=== PATIENT | female | born 1985 | race Caucasian/White ===

== ENCOUNTER 2021-11-06 10:58 | Outpatient (CLI) | payer SELFPAY ==
[2021-11-06 11:07] VITALS: BP 103/65; PULSE 93; O2SAT 96
[2021-11-06 11:13] VITALS: TEMP 36.5
[2021-11-06 11:16] VITALS: BMI 29.9
[2021-11-06] MEDS: Lactated Ringers 1,000 ML 125 ML IV (11:41)
[2021-11-06 12:48] VITALS: BP 122/74; PULSE 77; O2SAT 98
--- NOTE | 2021-11-06 12:49 | PCM.HP.OB ---
HPI - General General Date of Service: 11/06/21 Chief Complaint: breech presentation HPI Narrative MICAELA KELLY, is a 36 F who presents for scheduled external cephalic version. She has a history of 3 prior vaginal deliveries. She had a formal ultrasound showing breech presentation, a fundal posterior placenta, and an SHYANN of about 16 cm. uncomplicated other than advanced maternal age. See [facility] records. PFSH PFSH Home Medications vits,calcium no.78-iron fumarate-folic acid 29 mg-1 mg tablet (Prenatabs FA) 1 tab PO DAILY 07/23/14 [History Last Taken 11/06/21 09:30 1 tab] Allergy/AdvReac Type Severity Reaction Status Date / Time No Known Allergies Allergy Verified 11/06/21 11:17 Social History Smoking Status: Never smoker History Elective abortions Hx Para 2 Spontaneous abortions Hx # Term Pregnancies Ectopic pregnancies Hx # Pregnancies Multiple births # of living children NST FHR Rate Baby A Baseline: 140 Variability:: Moderate Accelerations:: 15 x 15 Decelerations:: None Vital Signs Vital Signs Vital Signs: 11/06/21 11:07 11/06/21 11:07 11/06/21 11:07 Temperature Temperature Source Pulse Rate 93 Blood Pressure 103/65 BP Systolic 103 BP Diastolic 65 Pulse Ox 96 11/06/21 11:13 11/06/21 11:13 Temperature 97.7 F L Temperature Source Temporal Pulse Rate Blood Pressure BP Systolic BP Diastolic Pulse Ox Weight Weight: 185 lb 13.595 oz Body Mass Index (BMI) 29.9 Physical Exam Const alert and no apparent distress HEENT normocephalic Resp normal respiratory effort GI soft to palpation, non-tender and non-distended GI Narrative: Gravid Labs Labs Labs: Blood Type A POSITIVE Antibody Screen NEGATIVE Hct 31.1 % (37-47) L Hgb 10.6 g/dl (12.0-15.0) L Rhogam given: No Assessment & Plan (1) Breech presentation: (2) 37 weeks gestation of : PLAN: Plan Patient presents for a scheduled 37-week external cephalic version. Bedside ultrasound performed and viable female infant in jermaine breech presentation, posterior placenta, subjectively normal fluid. Discussed risk, benefits, alternatives to an external cephalic version and patient desires to proceed after informed consent. See procedure note for details. Rh+. NST reactive prior to procedure.
--- NOTE | 2021-11-06 12:52 | PCM.OPRPT ---
Problems Associated Problem List Diagnoses (1) 37 weeks gestation of : (2) Breech presentation: Report of Operation Date of Procedure: 11/06/21 Pre-Operative Diagnosis: 37 week gestation, breech presentation Post-Operative Diagnosis: As above Surgery/Procedure Performed:: External cephalic version Description of Surgical Findings:: Bedside ultrasound performed noting fetus in jermaine breech presentation, posterior placenta, subjectively normal fluid. Surgeon: Laya Barrera english as a second language instructor: Nahomi Salguero Type of Anesthesia: None Special Medications: None Specimen's removed: None Drains: None Estimated Blood Loss (mL): n/a Fluids Replaced: n/a Description of Procedure: Pt is a 36-year-old who presented to labor and delivery at 37 weeks gestation for a scheduled external cephalic version. Advanced maternal age in the . History of 3 prior vaginal deliveries. has been uncomplicated, however at her visit in the office it was found that her current gestation is in breech presentation. A reactive heart tracing was obtained prior to the procedure. Discussed risks of an external cephalic version including but not limited to changes in heart rate, rupture of membranes, cord prolapse, placental abruption, vaginal bleeding, possible emergency section, compromise. Patient desires to proceed after discussion of risk, benefits, alternatives to external cephalic version. A bedside ultrasound was performed which confirmed a single intrauterine and jermaine breech presentation. The pelvis was in the maternal pelvis with the spine along the maternal right side, and the head in the maternal left upper quadrant. Using manual pressure the fetus was manipulated with gentle pressure from the palms against the buttocks and posterior occiput to stimulate a forward roll. In total 4 attempts were made. heart rate was obtained between each attempt and was reassuring. The fetus remained in jermaine breech presentation after 4 attempts. The patient tolerated the procedure. She was placed back on the heart rate monitoring for a total of 1 hour of monitoring post procedure. Discussed reasons to call or come back in for further evaluation. Discussed a 39-week section. She has a visit in 2 days in the office. Grafts/Implants Used: None Complications None Admit VTE Documentation VTE Present on Admission: No
[2021-11-06 13:59] VITALS: BP 110/67; PULSE 68; TEMP 36.5
== END 2021-11-06 14:10 | disposition home or self-care (01) ==
LOC: WPOUT 10:59 → WP 10:59
PROVIDERS: Visit Provider Obstetrics & Gynecology
DX: O32.1XX0 Maternal care for breech presentation, not applicable or unspecified (principal); O09.523 Supervision of elderly multigravida, third trimester; O43.193 Other malformation of placenta, third trimester; Z3A.37 37 weeks gestation of pregnancy
CPT/HCPCS: 96360; 96361; 59025; 59050; 59412; 76815; 99218; J7120; G0378

== ENCOUNTER 2021-11-19 09:45 | Inpatient (IN) | payer SELFPAY ==
[2021-11-19] VITALS (17 sets, daily range): BP systolic 90–112; BP diastolic 45–69; PULSE 60–88; RESP 12–18; TEMP 36.1–36.6; O2SAT 94–98; BMI 29.9
[2021-11-19] MEDS: Lactated Ringers 1,000 ML 999 ML IV (10:15)
[2021-11-19] MEDS: Acetaminophen 500 MG Tablet 1000 MG PO ×3 (10:37→23:40)
[2021-11-19 10:40] LABS: Absolute Lymphocyte Count 1.94 X10^3/uL (0.83-4.51); Absolute Neutrophil Count 5.8 X10^3/uL (2.0-7.7); Basophil# 0.03 X10^3/uL; Basophil% 0.4 % (0-1); Eosinophil# 0.08 X10^3/uL; Eosinophils% 0.9 % (0-5); Hematocrit 33.9 % (37-47); Hemoglobin 11.7 g/dL (12.0-15.0); Lymphocyte # 1.94 X10^3/ul (0.83-4.51); Lymphocyte % 22.7 % (19-41); Mean Corp Hgb Conc 34.5 g/dL (32-36); Mean Corpuscular Hgb 32.6 pg (27.0-32.0); Mean Corpuscular Volume 94.4 fL (81-99); Mean Platelet Vol. 11.5 fl (6.2-12.0); Monocyte# 0.64 X10^3/uL; Monocyte% 7.5 % (0-10); NRBC Flagged by Analyzer 0 % (0-5); Neutrophil # 5.79 X10^3/uL (2.7-7.7); Neutrophil % 67.7 % (47-70); Platelet Count 148 K/mm3 (150-450); RBC Distribution Width CV 12.8 % (11.6-14.6); RBC Distribution Width SD 43.9 fl (35.1-43.9); Red Blood Count 3.59 M/mm3 (4.2-5.4); White Blood Count 8.6 K/mm3 (4.4-11.0)
[2021-11-19] MEDS: Lactated Ringers 1,000 ML 150 ML IV (11:26)
--- NOTE | 2021-11-19 11:37 | PCM.PN.BLA ---
Progress Note I have re-examined the patient. There are no clinical changes since date of exam.
[2021-11-19] MEDS: Sodium Citrate/Citric Acid 30 ML UDC PO (11:41)
[2021-11-19] MEDS: Cefazolin 2 GM in 0.9% Normal Saline 100 ML IV (12:00)
--- NOTE | 2021-11-19 12:34 | EX.PCM.OBRPT ---
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 She was then placed in the supine position. She was prepped and draped in the normal sterile fashion. Anesthesia was found to be adequate. At this time a Pfannenstiel skin incision was made with a knife was carried down to the underlying layer of the fascia. The fascial incision was then extended laterally using curved Desouza scissor. attention was then turned to the superior aspect of the fascial edge was grasped with 2 straight [place] clamps tented up and the rectus muscle dissected off sharply using curved Desouza scissor. Attention was then turned to the inferior aspect where again [place] clamps were placed in the rectus muscles were tented up and the fascia was dissected off sharply using the curved Desouza scissor. Rectus muscles were then in the midline bluntly and peritoneum was entered bluntly. Gentle opposing traction was placed. At this time the vesicouterine peritoneum was identified. Scalpel was used to make a uterine incision in a low transverse fashion. The uterus was then entered bluntly gentle opposing traction was placed to extend this incision. Membranes were ruptured clear. Infant's buttocks was brought to the uterine incision was delivered atraumatically followed by the arms and head. loose nuchal x 1- delivered through then reduced. Delayed cord clamping. mouth and nose suctioned. Cord was clamped and cut was handed to the waiting nursery team. The Placenta was removed from the uterus. The uterus was then removed from the abdominal cavity. The uterus was cleared of all clots and debris using a lap. At this time the uterine incision was reapproximated using #1 Vicryl in a running locked fashion. Hemostasis was appreciated. Posterior cul-de-sac was then cleared of all clots and debris. Uterus was placed back in the abdominal cavity. Gutters were cleared of all clots and debris. Uterine incision was reevaluated and noted to be of excellent hemostasis. nuno placed. At this time the peritoneum and muscle were grasped with Kellys reapproximated using #2 Vicryl suture in a running fashion. Fascia was then reapproximated using #1 Vicryl in a running fashion. Subcu layer was reapproximated with #2 0 plain gut suture in an interrupted fashion. Subcu layer was closed using 4-0 Monocryl in a subcu fashion. Dry sterile dressing was applied. Instrument lap needle count correct ?2. Anticipated normal postoperative course. Presentation: Positive for Colin Breech Amniotic Membrane Rupture Type: Artificial Amniotic Fluid Description: Clear Placental Delivery Description: Expressed Placenta Disposition: [facility] Cord Vessel Description: 3 Vessels Cord Entanglement: Around neck x 1, loose Nuchal Cord Compression: Without compression A Gender: Female (1 minute): 9 (5 minute): 9 Delayed Cord Clamping: Yes Complications Risks of Surgery Discussed w/Patient: Bleeding, Anesthesia Risks, Infection and Injury to surrounding structure(s) including bowel and bladder Complications: none
[2021-11-19] MEDS: Oxytocin 30 units/NS 500 ml 30 UNITS/500 ML IV.SOLN 167 UNITS IV (12:50)
[2021-11-19] MEDS: Ketorolac 30 MG/ML Syringe IV ×2 (13:32→19:57)
[2021-11-19] MEDS: Lactated Ringers 1,000 ML 100 ML IV (15:38)
[2021-11-20 00:24] VITALS: BP 91/53; PULSE 69; RESP 16; TEMP 36.6; O2SAT 100
[2021-11-20] MEDS: Ketorolac 30 MG/ML Syringe IV ×2 (02:14→08:27)
[2021-11-20] MEDS: 0.9% Saline Lock 10 ML Syringe IV (02:14)
[2021-11-20 04:02] VITALS: BP 101/56; PULSE 70; RESP 16; TEMP 36.2; O2SAT 97
[2021-11-20] MEDS: Acetaminophen 500 MG Tablet 1000 MG PO ×2 (05:40→11:50)
[2021-11-20 06:02] LABS: Hematocrit 29.4 % (37-47); Hemoglobin 9.9 g/dL (12.0-15.0); Mean Corp Hgb Conc 33.7 g/dL (32-36); Mean Corpuscular Hgb 32.6 pg (27.0-32.0); Mean Corpuscular Volume 96.7 fL (81-99); Mean Platelet Vol. 11.7 fl (6.2-12.0); Platelet Count 108 K/mm3 (150-450); RBC Distribution Width CV 12.9 % (11.6-14.6); RBC Distribution Width SD 45.5 fl (35.1-43.9); Red Blood Count 3.04 M/mm3 (4.2-5.4)
[2021-11-20 08:22] VITALS: BP 89/44; PULSE 75; RESP 16; TEMP 36.1; O2SAT 96
--- NOTE | 2021-11-20 09:09 | PCM.PN.OB ---
Subjective Subjective Pain well controlled, average lochia. No N/V. Liu. regular diet Objective Data Objective Data Vital Signs: Vital Signs Temp Pulse Resp BP Pulse Ox O2 Del Method 97.0 F L 75 16 89/44 L 96 Room Air 11/20/21 08:22 11/20/21 08:22 11/20/21 08:22 11/20/21 08:22 11/20/21 08:22 11/20/21 08:22 Oxygen Delivery Method Room Air Weight: 84 kg Body Mass Index (BMI) 29.9 Intake & Output: Intake and Output for Last 24 Hours 11/18/21 11/19/21 11/20/21 23:59 23:59 23:59 Intake Total 2536.67 / 2536.67 Output Total 800 / 800 300 / 300 Balance 1736.67 / 1736.67 -300 / -300 Lab / Micro Data Result Diagrams: 11/20/21 05:40 Labs: Laboratory Results - last 24 hr 11/19/21 10:15: WBC 8.6, RBC 3.59 L, Hgb 11.7 L, Hct 33.9 L, MCV 94.4, MCH 32.6 H, MCHC 34.5, RDW Std Deviation 43.9, RDW Coeff of Selene 12.8, Plt Count 148 L, MPV 11.5, Immature Gran % (Auto) 0.800, Neut % (Auto) 67.7, Lymph % (Auto) 22.7, [place]y % (Auto) 7.5, Eos % (Auto) 0.9, Baso % (Auto) 0.4, Absolute Neuts (auto) 5.8, Absolute Lymphs (auto) 1.94, Nucleated RBC % 0 11/19/21 10:15: Blood Type A POSITIVE, Antibody Screen NEGATIVE 11/20/21 05:40: WBC 10.0, RBC 3.04 L, Hgb 9.9 L, Hct 29.4 L, MCV 96.7, MCH 32.6 H, MCHC 33.7, RDW Std Deviation 45.5 H, RDW Coeff of Selene 12.9, Plt Count 108 L, MPV 11.7 Micro: Microbiology 11/19/21 10:20 Nasal Secretion SARS-CoV-2 Antigen (Rapid) - Final Physical Exam Const alert General Appearance: cooperative GI GI Narrative: soft, moderate distention, fundus firm, appropriately tender. Abdominal bandage clean dry and intact Assessment & Plan (1) Delivery by section: PLAN: Plan Operative day 1. Patient is doing well. Status post primary . is breast-feeding and doing well. Desires discharge home today.
--- NOTE | 2021-11-20 09:12 | PCM.DC.SUM ---
Providers Date of Admission: 11/19/21 Reason For Visit: PRIMARY C SECTION Diagnosis Discharge Diagnosis (1) Delivery by section: Status: Acute Plan Operative day 1. Patient is doing well. Status post primary . is breast-feeding and doing well. Desires discharge home today. Medications at Discharge Home Medications vits,calcium no.78-iron fumarate-folic acid 29 mg-1 mg tablet (Prenatabs FA) 1 tab PO DAILY 07/23/14 ibuprofen 600 mg tablet 600 mg PO Q6H PRN Pain #60 TABLETS 11/20/21 Hospital Course Operations - (Primary low transverse section) Procedures None Summary of Care Provided Hospital Course: 36-year-old female admitted for primary section due to breech presentation. This was performed without difficulty. By postoperative day #1 the patient was ambulating, urinating tolerating regular diet. She desired discharge home. Weight / BMI Weight Weight: 84 kg Body Mass Index (BMI) 29.9 ABG / Lab / Microbiology Data Result Diagrams: 11/20/21 05:40 Laboratory: Laboratory Results - last 24 hr 11/19/21 10:15: WBC 8.6, RBC 3.59 L, Hgb 11.7 L, Hct 33.9 L, MCV 94.4, MCH 32.6 H, MCHC 34.5, RDW Std Deviation 43.9, RDW Coeff of Selene 12.8, Plt Count 148 L, MPV 11.5, Immature Gran % (Auto) 0.800, Neut % (Auto) 67.7, Lymph % (Auto) 22.7, [place] % (Auto) 7.5, Eos % (Auto) 0.9, Baso % (Auto) 0.4, Absolute Neuts (auto) 5.8, Absolute Lymphs (auto) 1.94, Nucleated RBC % 0 11/19/21 10:15: Blood Type A POSITIVE, Antibody Screen NEGATIVE 11/20/21 05:40: WBC 10.0, RBC 3.04 L, Hgb 9.9 L, Hct 29.4 L, MCV 96.7, MCH 32.6 H, MCHC 33.7, RDW Std Deviation 45.5 H, RDW Coeff of Selene 12.9, Plt Count 108 L, MPV 11.7 Microbiology: Microbiology 11/19/21 10:20 Nasal Secretion SARS-CoV-2 Antigen (Rapid) - Final Meaningful Use Info Meaningful Use Diagnoses (Choose all that apply): None applicable Discharge Plan Admission Admit Date/Time: 11/19/21 09:45 Primary Reason for Your Visit: Attending Provider: Robyn Joshua Discharge Orders/Prescriptions Prescriptions: New ibuprofen [ibuprofen] 600 MG tablet 600 mg PO Q6H PRN (Reason: Pain) Qty: 60 1RF Continued Prenatabs FA 1 TABLET tablet 1 tab PO DAILY Disposition Disposition (needs filled in before D/C Order can be placed): Home, Self Care
[2021-11-20] MEDS: Senna/Docusate Sodium 1 Tablet PO (10:05)
[2021-11-20 15:24] VITALS: BP 109/60; RESP 16; TEMP 36.5
[2021-11-20] MEDS: Ibuprofen 600 MG Tablet PO (15:29)
--- NOTE | 2021-11-22 08:48 | PCM.HP.OB ---
HPI - General General Date of Admission: 11/19/21 Date of Service: 11/19/21 Chief Complaint: breech 39+ weeks for Primary cs HPI Narrative MICAELA KELLY, is a 36 F who presents for primary cs for Breech at 39+ weeks- failed ECV [facility] Medical History (Updated 11/22/21 @ 08:[address] Robyn Joshua MD) SAB (spontaneous ) Home Medications vits,calcium no.78-iron fumarate-folic acid 29 mg-1 mg tablet (Prenatabs FA) 1 tab PO DAILY 07/23/14 [History Last Taken 11/18/21 16:00] ibuprofen 600 mg tablet 600 mg PO Q6H PRN Pain #60 TABLETS 11/20/21 [Rx Last Taken Unknown] Allergy/AdvReac Type Severity Reaction Status Date / Time No Known Allergies Allergy Verified 11/19/21 10:16 Family History (Updated 11/19/21 @ 14:54 by Loretta Sibley) Grandfather Cancer Grandmother Cancer Mother Cancer Surgical History (Updated 11/19/21 @ 14:53 by Loretta Sibley) H/O wisdom tooth extraction Social History Smoking Status: Never smoker History Elective abortions Hx Para 3 Spontaneous abortions Hx # Term Pregnancies Ectopic pregnancies Hx # Pregnancies Multiple births # of living children Vital Signs Vital Signs Vital Signs: Weight Weight: 84 kg Body Mass Index (BMI) 29.9 Labs Labs Labs: Blood Type A POSITIVE Antibody Screen NEGATIVE Hct 29.4 % (37-47) L Hgb 9.9 g/dL (12.0-15.0) L Rhogam given: No Assessment & Plan (1) Breech presentation: (2) 39 weeks gestation of : PLAN: Plan Admit to L&D Primary cs planned risks/benefits/alternatives reviewed- pt wished to proceed. SEE FULL H&P that was on chart from OFFICE PRE OP VISIT
== END 2021-11-20 16:40 | disposition home or self-care (01) | DRG 788 ==
PROVIDERS: Admitting Provider Obstetrics & Gynecology; Visit Provider Obstetrics & Gynecology
PROC: 10D00Z1 Extraction of Products of Conception, Low, Open Approach (ICD-10-PCS; CPT 59514; principal; 2021-11-19 11:45)
DX: O32.1XX0 Maternal care for breech presentation, not applicable or unspecified (principal); O69.81X0 Labor and delivery complicated by cord around neck, without compression, not applicable or unspecified; Z37.0 Single live birth; Z3A.39 39 weeks gestation of pregnancy
CPT/HCPCS: 59025; 59050; 76815; 85025; 85027; 86850; 86900; 86901; 87426; 99218; 99251; J7120; A4216; G0378; G0463; J2405

== ENCOUNTER 2023-12-08 17:36 | Inpatient (IN) | payer SELFPAY ==
[2023-12-08] VITALS (58 sets, daily range): BP systolic 70–135; BP diastolic 31–75; PULSE 77–181; RESP 16; TEMP 36.4–37.3; O2SAT 80–100; BMI 28.9
--- NOTE | 2023-12-08 18:00 | PCM.HP.OB ---
HPI - General General Date of Admission: 12/08/23 HPI Narrative MICAELA KELLY, is a 38 y/o @ 39 weeks gestation who presents to L&D with a home channel layer. She was attempting a home with Cristina Noland and stopped dilating for several hours at 8.5 c m and 90% effaced. She is requesting an epidural. Cristina Noland states that her water broke last night at 11 pm. Contractions are spacing out. The patient denies fevers or chills. The labor and delivery nurse checked her cervix just now and agrees that she is 8.5 cm dilated and 90% effaced. She has a history of one section (her last ) due to breech presentation. This was in 2021, done here at our facility by Dr. Sheets. [facility] Medical History (Updated 11/28/21 @ 00:00 by Leonardo Gamble) SAB (spontaneous ) Breech presentation Home Medications ?Medication ?Instructions ?Recorded ?Last Taken ?Type vits,calcium no.78-iron 1 tab PO DAILY 07/23/14 11/18/21 16:00 History fumarate-folic acid 29 mg-1 mg tablet (Prenatabs FA) ibuprofen 600 mg tablet 600 mg PO Q6H PRN Pain #60 TABLETS 11/20/21 Unknown Rx Allergy/AdvReac Type Severity Reaction Status Date / Time No Known Allergies Allergy Verified 11/19/21 10:16 Family History (Updated 11/19/21 @ 14:54 by Loretta Sibley) Grandfather Cancer Grandmother Cancer Mother Cancer Surgical History (Updated 12/08/23 @ 18:[address] Eduarda Saenz, ) H/O wisdom tooth extraction Delivery by section Social History Smoking Status: Never smoker History 7 Elective abortions Hx Para 5 Spontaneous abortions 1 Hx # Term Pregnancies Ectopic pregnancies Hx # Pregnancies Multiple births # of living children ROS Constitutional Constitutional: Denies change in weight, fatigue, fever(s), headache(s), poor appetite or weakness Eyes Eyes: Denies blurry vision, change in vision, seeing flashes or spots in vision ENT HEENT: Denies dizziness, headache(s), loss taste/smell or sore throat Cardiovascular Cardiovascular: Denies chest pain, dizziness, dyspnea, irregular heart rhythm, leg edema, palpitations, rapid heart rate or vomiting Respiratory/Chest Respiratory/Chest: Denies chest tightness, cough, dyspnea or breast pain Gastrointestinal Gastrointestinal: Denies abdominal pain, anorexia, constipation, cramping, diarrhea, hemorrhoids, vomiting or weight changes Genitourinary Genitourinary: Denies dysuria, flank pain, genital lesions, genital pain, urinary frequency or urinary urgency Musculoskeletal Musculoskeletal: Denies back pain, difficulty walking, joint pain, limited range of motion, muscle cramps or numbness Integumentary Integumentary: Denies lesions or unusual bruising Neurologic Neurologic: Denies abnormal movements, abnormal speech, dizziness, numbness, seizure-like activity or syncope Psychiatric Psychiatric: Denies anxiety, behavioral changes, change in appetite, change in libido, cognitive impairment, confusion, depression, difficulty concentrating, hallucinations or suicidal thoughts Endocrine Endocrinology: Denies excessive sweating, polydipsia or polyuria Hematologic/Lymphatic Hematologic/Lymphatic: Denies easy bleeding, easy bruising or lymphadenopathy Allergic/Immunologic Allergic/Immunologic: Denies itchy eyes, lip swelling, seasonal rhinorrhea, rhinitis, throat swelling, tongue swelling, eczemia, wheezing or asthma Vital Signs Vital Signs Vital Signs: 12/08/23 17:51 12/08/23 17:51 Pulse Rate 106 H Blood Pressure 113/66 BP Systolic 113 BP Diastolic 66 Physical Exam Const alert, oriented x3, no apparent distress and healthy appearing General Appearance: cooperative; Negative for anxious HEENT normocephalic Face and Sinus: normal facial exam Eyes EOMs intact bilaterally and no scleral icterus General Eye: normal appearance of both eyes Neck full ROM and supple Lymph Lymphatic: no lymphadenopathy noted Chest Chest: abnormal inspection of the chest Resp normal respiratory effort Effort and Inspection: able to speak in complete sentences Cardio regular rate GI soft to palpation and non-tender Inspection: gravid Palpation: soft; Negative for tender Back/Spine no CVA tenderness Extremity normal to inspection, full ROM and no clubbing, cyanosis or edema General Extremity: Negative for calf tenderness or edema Skin Lesions: no lesions Rashes: no rashes Psych mental status grossly normal Labs Labs Labs: Blood Type A POSITIVE Antibody Screen NEGATIVE Hct 29.4 % (37-47) L Hgb 9.9 g/dL (12.0-15.0) L Rhogam given: No Assessment & Plan (1) History of section complicating : (2) 39 weeks gestation of : PLAN: Plan Patient presents IOL, plan management for with pitocin Pain management: plans epidural. GBS unknown. Management of any complications: no care- will need all the labs upon insertion of her IV. I have reviewed the [facility] and made any clinically relevant updates.
[2023-12-08] MEDS: Lactated Ringers 1,000 ML 200 ML IV (18:05)
[2023-12-08 18:20] LABS: Absolute Lymphocyte Count 1.25 X10^3/uL (0.83-4.51); Absolute Neutrophil Count 13.2 X10^3/uL (2.0-7.7); Basophil# 0.03 X10^3/uL; Basophil% 0.2 % (0-1); Eosinophil# 0.01 X10^3/uL; Eosinophils% 0.1 % (0-5); Hematocrit 34.8 % (37-47); Hemoglobin 11.7 g/dL (12.0-15.0); Lymphocyte # 1.25 X10^3/ul (0.83-4.51); Mean Corp Hgb Conc 33.6 g/dL (32-36); Mean Corpuscular Volume 92.3 fL (81-99); Mean Platelet Vol. 11.8 fl (6.2-12.0); Monocyte# 0.97 X10^3/uL; Monocyte% 6.2 % (0-10); NRBC Flagged by Analyzer 0 % (0-5); Neutrophil # 13.22 X10^3/uL (2.7-7.7); Neutrophil % 84.8 % (47-70); Platelet Count 154 K/mm3 (150-450); RBC Distribution Width CV 13.1 % (11.6-14.6); RBC Distribution Width SD 43.8 fl (35.1-43.9); Red Blood Count 3.77 M/mm3 (4.2-5.4); White Blood Count 15.6 K/mm3 (4.4-11.0)
[2023-12-08] MEDS: Lactated Ringers 1,000 ML 999 ML IV (18:40)
[2023-12-08 19:03] LABS: HIV - WCH Non-Reactive (Nonreactive); Rubella IgG Reactive (Nonreactive); Syphilis Antibodies Non-reactive
[2023-12-08 19:24] LABS: Hepatitis B Surface Antigen Non-Reactive (Nonreactive); Hepatitis C Antibody Non-Reactive (Nonreactive)
[2023-12-08] MEDS: fentaNYL-bupivacaine (epidural) 100 ML BAG EPIDURAL (19:30)
[2023-12-08] MEDS: Oxytocin 15 Units/NS 250ml 15 UNITS/250 ML IV.SOLN 2 UNITS IV (20:03)
[2023-12-08] MEDS: Ondansetron 4 MG/2 ML Vial IV (21:10)
[2023-12-08] MEDS: Acetaminophen 500 MG Tablet PO (21:11)
[2023-12-08] MEDS: Famotidine 200 MG/20 ML MDV 20 MG in 0.9% Normal Saline (Pres. free 8 ML 300 MG IV (21:12)
--- NOTE | 2023-12-08 21:50 | OP.PCM_ITS ---
Assessment & Plan (1) History of section complicating : (2) 39 weeks gestation of : Maternal Data Information Final ANAHI: 12/15/23 Final ANAHI Source: LMP Vaginal Delivery Maternal Presentation Maternal Presentation: Spontaneous Rupture of Membranes Maternal Presentation: The patient presented to L&D with no care and laboring at home with a community resource officer. She has a history of prior section and 3 prior vaginal deliveries. She is 8 cm when presenting to L&D and requesting an epidural. Type of Induction: Pitocin Operative Information Date of Procedure: 12/08/23 Pre-Operative Diagnosis: 39 weeks, no care, history of prior section, prolonged rupture of membranes Post-Operative Diagnosis: 39 weeks, no care, history of prior section, prolonged rupture of membranes Surgery / Procedure Performed: Spontaneous Vaginal Delivery Type of Anesthesia: Epidural Drain: Her to straight drain Estimated Blood Loss: 100cc Time of Delivery: 21:38 Findings Description of Procedure: Patient began pushing and delivered the head in the BHUPENDRA presentation. The head was delivered atraumatically. The anterior and posterior shoulders delivered without complication followed by the rest of the and the was placed on the maternal abdomen. Delayed cord clamping was employed for approximately 60 seconds. Cord was clamped and cut and gentle traction was applied to the cord and the placenta delivered spontaneously immediately following it was noted to be intact with three-vessel cord. The perineum and vagina were inspected and noted to be intact. EBL was 100 cc. Patient and infant tolerated delivery well. Presentation: Vertex Amniotic Membrane Rupture Type: Spontaneous Time of Membrane Rupture: 2100 on 12/07/23 Amniotic Fluid Description: Bloody Placental Delivery Description: Spontaneous Placenta Disposition: [facility] Cord Vessel Description: 3 Vessels Cord Entanglement: None Infant A Gender: Male (1 minute): 9 (5 minute): 9 Delayed Cord Clamping: Yes Post Vaginal Delivery Medications Given After Delivery: IV Pitocin Episiotomy Description: None Laceration: None Complication Complications: None Multi Select Codes Urinary/Genital Urinary/Genital CPT Codes: 40143 Vaginal Delivery Only
--- NOTE | 2023-12-08 21:55 | DCINST_ITS ---
Discharge Instructions Diet Discharge Diet: No restrictions Activity Discharge Activity: Return to Normal Activity, May Not Drive (while taking narcotic pain medications.) and May Shower May resume sexual activity in: 4-6 weeks Dressing / Incision Call your doctor if your incision/area has: Continuous Slow Oozing, Sudden Increased Bleeding, Increased Pain/ Swelling, Increased Redness and Foul Smelling Discharge Follow Up Care Please Follow Up With: Eduarda Saenz, DO When: Call [phone] to make an appointment with your doctor in 6 weeks. If you had elevated blood pressure or 4th degree laceration, you will need to be seen in 2 weeks. Test Results: Test results from this visit will be discussed in further detail at your follow- up appointment, if applicable. Discharge Plan Admission Admit Date/Time: 12/08/23 17:36 Attending Provider: Eduarda Saenz Primary Care Provider: Yesika Dinero,Vijaya Primary Discharge Orders/Prescriptions Prescriptions: No Action Prenatabs FA 1 TABLET tablet 1 tab PO DAILY Referrals / Follow Up: Care Physician,Vijaya Primary [Primary Care Provider] -
[2023-12-08] MEDS: Oxytocin 15 Units/NS 250ml 15 UNITS/250 ML IV.SOLN 83 UNITS IV (22:20)
[2023-12-09] MEDS: Ibuprofen 600 MG Tablet PO ×3 (03:28→15:42)
[2023-12-09 03:40] VITALS: BP 110/75; PULSE 79; RESP 16; TEMP 36.4; O2SAT 97
--- NOTE | 2023-12-09 07:57 | PCM.PN.OB ---
Subjective Subjective Patient doing well without complaints. Tolerating PO. Ambulating and voiding without difficulty. Feeding well. Denies chest pain, shortness of breath, calf pain/swelling, fevers, chills, lightheadedness. Objective Data Objective Data Vital Signs: Vital Signs Temp Pulse Resp BP Pulse Ox O2 Del Method 97.5 F L 79 16 110/75 97 Room Air 12/09/23 03:40 12/09/23 03:40 12/09/23 03:40 12/09/23 03:40 12/09/23 03:40 12/09/23 03:40 Oxygen Delivery Method Room Air Weight: 180 lb Body Mass Index (BMI) 28.9 Intake & Output: Intake and Output for Last 24 Hours 12/07/23 12/08/23 12/09/23 23:59 23:59 23:59 Intake Total 1947.84 / 1947.84 250 / 250 Output Total 350 / 350 550 / 550 Balance 1597.84 / 1597.84 -300 / -300 Lab / Micro Data 12/08/23 18:00 Labs: Laboratory Results - last 24 hr 12/08/23 18:00: WBC 15.6 H, RBC 3.77 L, Hgb 11.7 L, Hct 34.8 L, MCV 92.3, MCH 31.0, MCHC 33.6, RDW Std Deviation 43.8, RDW Coeff of Selene 13.1, Plt Count 154, MPV 11.8, Immature Gran % (Auto) 0.700, Neut % (Auto) 84.8 H, Lymph % (Auto) 8.0 L, Chase % (Auto) 6.2, Eos % (Auto) 0.1, Baso % (Auto) 0.2, Absolute Neuts (auto) 13.2 H, Absolute Lymphs (auto) 1.25, Nucleated RBC % 0, Syphilis Total Ab Non-reactive, Hep Bs Antigen Non-Reactive, Hepatitis C Antibody Non-Reactive, HIV 1&2 Antibody Non-Reactive, Rubella IgG Antibody Reactive, Blood Type A POSITIVE, Antibody Screen NEGATIVE Physical Exam Const alert and oriented x3 HEENT normocephalic Eyes PERRL Neck full ROM Resp normal respiratory effort GI soft to palpation GI Narrative: FF below U Assessment & Plan (1) Vaginal after , delivered, current hospitalization: COMMENT: 12/08/23 SANDHYA Vidal. 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 Failed to progress at home. (2) Prolonged rupture of membranes, delivered: (3) History of section complicating : PLAN: Plan s/p PPD # 1 1. routine post delivery care 2. breast feeding- support given 3. rh positive 4. rubella immune 5. wants discharge today but explained will be a discussion with [employer].
[2023-12-09 09:00] VITALS: BP 102/66; PULSE 74; RESP 16; TEMP 36.1; O2SAT 96
[2023-12-09 12:20] VITALS: BP 108/71; PULSE 76; RESP 16; TEMP 36.1; O2SAT 98
[2023-12-09] MEDS: Acetaminophen 500 MG Tablet 1000 MG PO (12:35)
[2023-12-09 16:00] VITALS: BP 96/64; PULSE 85; RESP 16; TEMP 36.1; O2SAT 98
[2023-12-09 20:45] VITALS: BP 118/74; PULSE 72; RESP 12; TEMP 36.3; O2SAT 98
[2023-12-10 02:15] VITALS: BP 100/74; PULSE 81; RESP 14; TEMP 36.4; O2SAT 100
--- NOTE | 2023-12-10 07:57 | PN.OBGYN_ITS ---
Subjective Subjective Patient doing well without complaints. Tolerating PO. Ambulating and voiding without difficulty. Feeding well. Denies chest pain, shortness of breath, calf pain/swelling, fevers, chills, lightheadedness. Objective Data Objective Data Vital Signs: Vital Signs Temp Pulse Resp BP Pulse Ox O2 Del Method 97.6 F L 81 14 100/74 100 Room Air 12/10/23 02:15 12/10/23 02:15 12/10/23 02:15 12/10/23 02:15 12/10/23 02:15 12/10/23 02:15 Oxygen Delivery Method Room Air Weight: 180 lb Body Mass Index (BMI) 28.9 Intake & Output: Intake and Output for Last 24 Hours 12/08/23 12/09/23 12/10/23 23:59 23:59 23:59 Intake Total 1947.84 / 1947.84 250 / 250 Output Total 350 / 350 550 / 550 Balance 1597.84 / 1597.84 -300 / -300 Lab / Micro Data 12/08/23 18:00 Micro: Microbiology 12/09/23 06:57 Genital vaginal Chlamydia trachomatis (PCR) - Final 12/09/23 06:57 Genital vaginal Neisseria gonorrhoeae (PCR) - Final Physical Exam Const alert and oriented x3 HEENT normocephalic Eyes PERRL Neck full ROM Resp normal respiratory effort GI soft to palpation GI Narrative: FF below U Assessment & Plan (1) Vaginal after , delivered, current hospitalization: COMMENT: 12/08/23 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 PLAN: Plan s/p VAVD PPD # 2 1. routine post delivery care 2. breast feeding- support given 3. rh positive 4. rubella immune 5. home today
[2023-12-10 08:00] VITALS: BP 106/68; PULSE 78; RESP 16; TEMP 36.1; O2SAT 98
--- NOTE | 2023-12-10 15:44 | CASEMGMT ---
Labor and Delivery Social Work Social work noted that SDOH was triggered, however patient was discharged prior to SDOH being re-evaulated. Sw spoke to bedside RN who reports that SDOH consult was entered incorrectly and there was no need for SDOH to be re-evaluated by social work at this time. Patient and discharged on this date, no social concerns at this time. Shravan Walker, [employer], [employer]
--- NOTE | 2023-12-14 15:30 | NURSING ---
F/up phone call performed, no ans, voicemail box not set up
== END 2023-12-10 10:15 | disposition home or self-care (01) | DRG 807 ==
PROVIDERS: Admitting Provider Obstetrics & Gynecology; Referring Provider Obstetrics & Gynecology; Visit Provider Obstetrics & Gynecology
DX: O42.02 Full-term premature rupture of membranes, onset of labor within 24 hours of rupture (principal); Z37.0 Single live birth; O34.219 Maternal care for unspecified type scar from previous cesarean delivery; Z3A.39 39 weeks gestation of pregnancy; Z87.59 Personal history of other complications of pregnancy, childbirth and the puerperium
CPT/HCPCS: 59025; 59050; 85025; 86703; 86762; 86780; 86803; 86850; 86900; 86901; 87340; 87491; 87591; 99221; J7120; G0378; J2405; J3490